=== PATIENT | male | born 1940 | race Caucasian/White ===

== ENCOUNTER → 2017-09-01 | Outpatient (CLI) | payer MEDICARE | END | disposition home or self-care (01) | LOC: PCVCCLINIC 10:00 | DX: I25.10 Atherosclerotic heart disease of native coronary artery without angina pectoris (principal); E78.00 Pure hypercholesterolemia, unspecified; R60.9 Edema, unspecified; F17.200 Nicotine dependence, unspecified, uncomplicated; Z79.82 Long term (current) use of aspirin | CPT/HCPCS: 93005; G0463 ==

== ENCOUNTER → 2018-09-07 | Outpatient (CLI) | payer MEDICARE ==
--- NOTE | 2018-09-07 14:24 | PCVCIMAG ---
APPROVED REPORT Study performed: 09/07/2018 13:14:12 EXAM: Comprehensive 2D, Doppler, and color-flow Echocardiogram Patient Location: Echo lab Status: routine BSA: 1.53 HR: 66 bpmBP: 100/60 mmHg Rhythm: NSR Other Information Study Quality: Technically Difficult Risk Factors: Cardiac Risk Factors: HTN, Hyperlipidemia, Smoking Indications Lymphoma,Stent, COPD 2D Dimensions IVSd: 10.73 (7-11mm)LVOT Diam: 20.32 (18-24mm) LVDd: 45.03 mm PWd: 12.42 (7-11mm)Ascending Ao: 32.89 (22-36mm) LVDs: 37.05 (25-40mm) Left Atrium: 40.20 (27-40mm) Aortic Root: 32.43 mm LV Single Plane 4CH: 55.11 % LV Single Plane 2CH: 63.14 % Biplane EF: 59.9 % Volumes Left Atrial Volume (Systole) Single Plane 4CH: 27.67 mLSingle Plane 2CH: 35.70 mL LA ESV Index: 23.00 mL/m2 Aortic Valve AoV Peak Brian.: 1.18 m/s AO Peak Gr.: 5.61 mmHgLVOT Max P.63 mmHg LVOT Max V: 0.95 m/s TRACIE Vmax: 2.61 cm2 Mitral Valve E/A Ratio: 0.6 MV Decel. Time: 210.94 ms MV E Max Brian.: 0.70 m/s MV A Brian.: 1.17 m/s TDI E/Lateral E': 7.00E/Medial E': 10.00 Medial E' Brian.: 0.07 m/s Lateral E' Brian.: 0.10 m/s Pulmonary Vein P Vein S: 0.64 m/sP Vein A: 0.60 m/s P Vein D: 0.53 m/sP Vein A Dur.: 100.3 msec P Vein S/D Ratio: 1.21 Tricuspid Valve TR Peak Brian.: 2.97 m/s TR Peak Gr.: 35.32 mmHg Left Ventricle The left ventricle is normal size. There is normal LV segmental wall motion. Mild concentric left ventricular hypertrophy. Left ventricular systolic function is normal. The left ventricular ejection fraction is within the normal range. LVEF is 55%. Right Ventricle The right ventricle is normal size. The right ventricular systolic function is normal. Atria The left atrium size is normal. The right atrium size is normal. Aortic Valve The aortic valve is normal in structure. No aortic regurgitation is present. There is no aortic valvular stenosis. Mitral Valve The mitral valve is normal in structure. Mild mitral regurgitation. No evidence of mitral valve stenosis. Tricuspid Valve The tricuspid valve is normal in structure. Mild tricuspid regurgitation. Pulmonary artery pressure is 45mmHg. Pulmonic Valve The pulmonary valve is normal in structure. There is no pulmonic valvular regurgitation. Great Vessels The aortic root is normal in size. IVC is normal in size and collapses >50% with inspiration. Pericardium There is no pericardial effusion. <Conclusion> The left ventricle is normal size. Mild concentric left ventricular hypertrophy. Left ventricular systolic function is normal. The right ventricle is normal size. The left atrium size is normal. The aortic valve is normal in structure. Mild mitral regurgitation. Mild tricuspid regurgitation. Pulmonary artery pressure is 45mmHg.
== END | disposition home or self-care (01) ==
LOC: PCVCIMAG 13:00
PROVIDERS: ATTEND Internal Medicine Cardiovascular Disease
DX: I08.1 Rheumatic disorders of both mitral and tricuspid valves (principal); I25.10 Atherosclerotic heart disease of native coronary artery without angina pectoris; I10 Essential (primary) hypertension; E78.00 Pure hypercholesterolemia, unspecified; F17.210 Nicotine dependence, cigarettes, uncomplicated
CPT/HCPCS: 93005; 93306; G0463